=== PATIENT | male | born 1990 | race African-American/Black ===

== ENCOUNTER 2018-08-28 14:10 | Emergency (ER) | payer OTHER ==
[~2018-08-28] VITALS: Ht 193 cm; Wt 95.3 kg
[~2018-08-28 14:10] MED LIST: AUGMENTIN 875875 MG PO; BACTRIM DS TAB1 EACH PO; BACTROBAN NASAL1 GM NASAL; CLEOCIN HCL150 MG PO; COMPLERA; COMPLERA TABLE1 EACH PO; KEFLEX500 MG PO; LOMOTIL TABLET1 EACH PO; MOBIC7.5 MG PO; NOHOMEMEDICATIONS; PENICILLIN V P500 MG PO; PERCOCET 5-3251 EACH PO; PREDNISONE 20 M20 M1 PO; PREDNISONE 20 M20 MG PO; ZPAK PO
[2018-08-28 14:31] LABS: URINE BILIRUBIN NEGATIVE (Negative); URINE BLOOD 1+ (Negative); URINE CLARITY CLEAR; URINE COLOR YELLOW; URINE GLUCOSE-RANDOM* NEGATIVE (Negative); URINE KETONES NEGATIVE (Negative); URINE LEUKOCYTES-REFLEX NEGATIVE (Negative); URINE NITRITE-REFLEX NEGATIVE (Negative); URINE PROTEIN (DIPSTICK) NEGATIVE (Negative); URINE UROBILINOGEN 0.2 E.U./dl (0.2-1.0)
[2018-08-28 14:36] LABS: SQUAMOUS None Seen /LPF (0-3); URINE RBC 3-10 Few /HPF (0-2); URINE WBC-REFLEX 0-5 Rare /HPF (0-5)
[2018-08-28 14:37] LABS: BACTERIA-REFLEX None Seen /HPF (None Seen); CASTS None Seen /LPF (None Seen); CRYSTALS None Seen /LPF (None Seen)
[2018-08-28 16:24] VITALS: BP 132/84
== END 2018-08-28 16:25 | disposition home or self-care (01) ==
LOC: ER 14:10
PROVIDERS: Nurse Practitioner Family
DX: R36.1 Hematospermia (principal); R31.9 Hematuria, unspecified; F17.210 Nicotine dependence, cigarettes, uncomplicated; Z88.1 Allergy status to other antibiotic agents; Z88.2 Allergy status to sulfonamides